=== PATIENT | male | born 1945 | race Caucasian/White ===

== ENCOUNTER 2016-06-04 10:02 | Emergency (ER) | payer MEDICARE, OTHER ==
[~2016-06-04] VITALS: Ht 170.2 cm; Wt 109.2 kg
[2016-06-04 10:13] VITALS: TEMP 98.1; Ht 170.2 cm; Wt 109.2 kg
[2016-06-04] MEDS ORDERED: TAMS0.4C47 PO (10:23)
[2016-06-04] MEDS ORDERED: MESA1.2T PO (10:23)
[2016-06-04] MEDS ORDERED: ATEN25TA PO (10:23)
[2016-06-04] MEDS ORDERED: ATOR40TA64 PO (10:23)
[2016-06-04] MEDS ORDERED: ROPI0.5T5 PO (10:23)
[2016-06-04] MEDS ORDERED: OMEP20CA10 PO (10:23)
[2016-06-04] MEDS ORDERED: CHOL200014 PO (10:26)
[2016-06-04] MEDS ORDERED: LORA10TA62 PO (10:26)
[2016-06-04] MEDS ORDERED: MULT1TAB69 PO (10:26)
[2016-06-04] MEDS ORDERED: UBID100C29 PO (10:26)
[2016-06-04] MEDS ORDERED: ASPI-557 PO (10:26)
[2016-06-04] MEDS ORDERED: SERT25TA5 PO (10:33)
--- NOTE | 2016-06-04 11:03 | NUR ---
REPORT REC'D FROM JOSE JUAN SHARMA. THIS RN WILL RESUME CARE.
--- NOTE | 2016-06-04 11:35 | NUR ---
STATUS PT SITTING UPRIGHT IN CART. DENIES NEEDS AT THIS TIME. PT ADVISED THAT NURSE PRACTITIONER IS SCHEDULED TO ARRIVE AT 1200 AND WILL SEE PT ON ARRIVAL. CALL LIGHT WITHIN REACH, INSTRUCTED TO CALL IF ANY NEEDS ARRIVE.
--- NOTE | 2016-06-04 12:10 | NUR ---
[facility]
[2016-06-04] MEDS ORDERED: PRED20TA PO (12:15)
[2016-06-04] MEDS ORDERED: AZIT250T PO (12:15)
--- NOTE | 2016-06-04 12:15 | ERPDOC ---
Departure Disposition Decision Date: Jun 04, 2016 Disposition Decision Time: 12:13 Disposition: 01 DISCHARGED HOME, SELF-CARE Impression Impression Impression: Primary Impression: Sinusitis Sinusitis location: frontal Chronicity: acute Recurrence: non-recurrent Qualified Codes: J01.10 - Acute frontal sinusitis, unspecified Severity: Moderate Condition: Stable Seen By: Mid-level only Patient Instructions: Sinusitis (ED) Problems/Meds/Labs Reviewed?: Yes Medications reviewed and manag: Yes Additional Instructions: Take the Zithromax and the Prednisone as prescribed. You may continue to take any OTC medications that you prefer to help with symptoms as well. Follow up with your primary care provider when you get back to [facility] if you are not improving. Follow up care ordered?: Yes Mental Status: Alert, Oriented Scripts Azithromycin (Zithromax) 250 Mg Tablet 1 TAB PO DAILY, #6 TAB 0 Refills TAKE TWO ON DAY ONE, THEN ONE TAB DAILY UNTIL ALL TAKEN. Prov: JOSUE EUGENE F[employer] ROLL INSPECTOR 06/04/16 Prednisone (Prednisone) 20 Mg Tablet 20 MG PO BIDWM, #6 TAB 0 Refills Take 1 tablet, by mouth, 2 times a day with meals. Prov: JOSUE EUGENE F[employer] RO[employer] INSPECTOR 06/04/16 HPI - Cough/URI General Chief Complaint: Cough,Fever,Flu,URI Stated Complaint: COLD, CONGESTION Time Seen by Provider: 12:09 Source: patient Exam Limitations: no limitations HPI - Cough/URI Initial Comments For the last 5 days he has had some trouble with nasal congestion/drainage and post nasal drainage. Has lost his voice as well. Denies any fever or chills or sore throat. Has had a non productive cough. Has been taking an OTC allergy medication but it has not really helped much at all. He is here in [place] visiting family from [facility] and does not fly back for another 2 days. Occurred At: home Onset/Timing: Gradual Duration: other (Over the last 5 days) Prior Episodes/Possible Cause: no prior episodes Associated Symptoms: cough, fever/chills (chills), nasal congestion, nasal drainage, other (hoarseness), sinus infection, DENIES: chest pain/soreness, dizziness, earache, facial pain, headache, lightheadedness, muscle aches, shortness of breath, sore throat, wheezing Hx of Similar Symptoms: No Allergies: Coded Allergies: codeine (Verified Allergy, Unknown, 06/04/16) midazolam (Verified Allergy, Unknown, 06/04/16) Past History Past Medical History GI: ulcerative colitis Surgical History Denies Surgeries Family History Family History: Negative Social History Smoking Status: Never smoker Substance Use Type: does not use Alcohol Intake: none Review of Systems Constitutional Constitutional: chills, DENIES: appetite decrease, dizziness, fatigue, fever, weakness Eyes Vision: DENIES: blurring, double vision ENMT Ears: DENIES: drainage, pain Sinuses: congestion, other (Post nasal drainage), rhinorrhea Mouth/Throat: change in voice, hoarsness, scratchy throat, DENIES: drooling, painful swallowing, sore throat Cardiovascular Cardiac: DENIES: chest pain, orthopnea Rhythm/Rate: DENIES: irregular beat, palpitations Pulmonary Respiratory: cough, DENIES: dyspnea, sputum, tachypnea GI Upper Abdomen: DENIES: nausea, pain, vomiting Lower Abdomen: DENIES: constipation, diarrhea, pain Integumentary Skin: DENIES: rash Neurological General: DENIES: headache, numbness, tingling, weakness Physical Exam General General Nourishment: well nourished, well developed, appears stated age, no acute distress, adult General Body Habitus: well groomed Vitals and Pain First Documented Vital Signs Date Time Temp Pulse Resp B/P Pulse Ox O2 Delivery O2 Flow Rate FiO2 06/04/16 10:13 98.1 89 20 144/83 96 Room Air Weight: Kilograms: 109.200 Height (feet): 5 Height (inches): 7.00 Triage Pain Scale: RN VS reviewed by Provider: Yes Normal Exams: Neck: Full range of motion, without adenopathy, JVD, bruits or thyromegaly Chest/Resp: Clear all grubbs, with good airflow, and symmetry bilaterally CV: Regular rate and rhythm, without murmur or gallop, Pulses 2+ all extremities, capillary refill, <2 seconds all ext., no pedal edema noted Abdomen: Bowel sounds positive, soft, non-tender, non-distended, no hepatosplenomegaly, masses or bruits noted Lymphatic: No lymphadenopathy, or lymphedema noted Integumentary: No rashes, hives, or bruising noted Neurologic: Patient is alert, and oriented Psychiatric: Patient exhibits, appropriate attention, emotion and affect ENMT (brief) ENMT Brief: FOUND: TM clear, TM good light reflex, ear canals clear, mucosa moist, nasal erythema, normal dentition, normal tonsils, NOT FOUND: lesions, nasal exudate, nasal swelling, petechiae, pharnyx erythema, tonsillar deviation Differential Diagnoses Differential Diagnoses Considering: Acute Bronchitis, Influenza, Sinusitis, Strep, URI, Viral Syndrome Progress Progress Progress Will go ahead and have him start some Zithromax today as well as Prednisone. Have him continue with OTC medications as needed. F/U with PCP once back in his hometown if he is not improving at all. JOSUE EUGENE APRN Jun 04, 2016 12:15
[2016-06-04 12:23] VITALS: BP 154/83; PULSE 83; RESP 18; O2SAT 96
--- NOTE | 2016-06-04 12:23 | NUR ---
DISCHARGE WRITTEN INSTRUCTIONS WITH ZITHROMAX AND PREDNISONE RX REVIEWED AND SENT WITH PT. PT VERBALIZES UNDERSTANDING OF DI AND MEDICATIONS, DENIES QUESTIONS. PT AMBULATES OUT OF ER WITH STEADY GAIT ACCOMP BY SPOUSE AT THIS TIME.
--- NOTE | 2016-06-04 12:41 | NUR ---
Note richelle in EDM - 06/04/16 at 1411 by MANGO DISCHARGE WRITTEN INSTRUCTIONS REVIEWED AND SENT WITH PT. PT VERBALIZES UNDERSTANDING OF DI, DENIES QUESTIONS. REPORTS FEELING BETTER AFTER FLUID ADM. PT AMBULATES OUT OF ER WITH STEADY GAIT AT THIS TIME.
== END 2016-06-04 12:23 | disposition home or self-care (01) ==
LOC: ED 10:02
DX: J01.10 Acute frontal sinusitis, unspecified (principal)